=== PATIENT | male | born 2000 | race Caucasian/White ===

== ENCOUNTER 2025-04-25 04:20 | Emergency (ER) | payer OTHER ==
[2025-04-25] MEDS ORDERED: diphenhydrAMINE 50 MG/ML VIAL ONE (05:02)
[2025-04-25] MEDS ORDERED: Famotidine/PF 20 mg/2ml Vial ONE (05:02)
[2025-04-25 05:42] LABS: #Basophils 0.05 10x3/uL (0.0-0.2); #Eosinophils 0.29 10x3/uL (0.0-0.7); #Monocytes 0.57 10x3/uL (0.11-0.59); #Neutrophils 3.44 10x3/uL (1.40-6.50); %Basophils 0.8 % (0.0-1.0); %Eosinophils 4.8 % (0.0-10.0); %Lymphocytes 27.7 % (21.0-51.0); %Monocytes 9.5 % (0.0-10.0); %Neutrophils 57.0 % (42.0-75.0); Hematocrit 44.0 % (42.0-52.0); Hemoglobin 15.4 g/dL (14.0-18.0); Mean Corpuscular Hemoglobin 27.8 pg (27.0-31.0); Mean Corpuscular Volume 79.6 fL (78.0-98.0); Platelet Count 207 10x3/uL (130-400); Red Blood Cell (RBC) Count 5.53 mill/uL (4.70-6.10); White Blood Cell (WBC) Count 6.03 10x3/uL (4.8-10.8)
[2025-04-25 05:46] LABS: ALT (SGPT) 10 U/L (Less than 45); AST (SGOT) 42 U/L (11-34); Albumin 5.1 g/dL (3.1-4.5); Alkaline Phosphatase 56 U/L (40-110); Anion Gap 14 mmol/L (10-20); BUN (Urea Nitrogen) 13 mg/dL (8.9-20.6); Bilirubin, Total 1.1 mg/dL (0.3-1.2); Calc. Creatinine Clearance 0 mL/min (70-130); Calcium 10.0 mg/dL (7.8-10.44); Carbon Dioxide 25 mmol/L (22-29); Chloride 103 mmol/L (98-107); Globulin 3.3 g/dL (2.4-3.5); Glucose 97 mg/dL (70-105); Potassium 3.3 mmol/L (3.5-5.1); Sodium 139 mmol/L (136-145)
== END 2025-04-25 06:25 | disposition home or self-care (01) ==
LOC: ERS 04:20
DX: T78.119A Other adverse food reaction due to milk and dairy products with baked milk tolerance/reactivity, unspecified, initial encounter (principal); R07.89 Other chest pain; R11.2 Nausea with vomiting, unspecified; R10.9 Unspecified abdominal pain
CPT/HCPCS: 71045; 80053; 84484; 85025; 93005; 96361; 96374; 96375; J1200; J1308; J2919